=== PATIENT | male | born 1975 | race Caucasian/White ===

== ENCOUNTER 2020-11-29 02:07 | Emergency (ER) | payer SELFPAY ==
[2020-11-29 02:18] VITALS: PULSE 76; RESP 18; TEMP 36.7; O2SAT 98; BMI 24.4
--- NOTE | 2020-11-29 02:34 | ED_ITS ---
HPI - Back Pain/Injury General: Chief Complaint: Back Pain/Injury Stated Complaint: Left Back Side Time Seen by Provider: 11/29/20 02:27 History of Present Illness: HPI Narrative: Patient comes in for left side low back pain. Patient reports for the last 2 days he has had back pain. Patient was unable to get any rest tonight while in bed. Patient came into the ER for evaluation and treatment. 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 Patient appears well. Patient appears in mild to moderate pain. Review of Systems General: Reports: 10 or more systems reviewed and unremarkable except in HPI and below Musc: Reports: back pain Physical Exam Const: COMMON NORMALS: no acute distress and patient oriented x3 GENERAL APPEARANCE: cooperative HENMT: COMMON NORMALS: normocephalic and Normal external nose present HEAD & SCALP: normal to inspection and normocephalic NOSE: Normal external nose present Eye: GENERAL EYE: appearance normal, both eyes and all related structures Neck/C-Spine: COMMON NORMALS: full ROM Chest: COMMONS NORMALS: normal inspection of the chest Resp: COMMON NORMALS: normal respiratory effort EFFORT & INSPECTION: Yes able to speak in complete sentences Cardio: COMMON NORMALS: regular rate and regular rhythm RATE: regular rate RHYTHM: regular rhythm GI: COMMON NORMALS: non-tender : COMMON NORMALS: Yes no CVA tenderness BLADDER/KIDNEY EXAM: Yes no CVA tenderness Back/Pelvis: COMMON NORMALS: no CVA tenderness and thoracic and lumbar spine normal to inspection LUMBAR SPINE/LOWER BACK: Yes paraspinal muscle tenderness Lumbar paraspinal muscle tenderness: left Extremity: COMMON NORMALS: normal to inspection Neuro: COMMON NORMALS: patient oriented x3 and moves all extremities Psych: COMMON NORMALS: mental status grossly normal and cooperative Skin: COMMON NORMALS: no rashes or lesions noted GENERAL SKIN EXAM: no rashes or lesions noted Course Vital Signs: Vital signs: Vital Signs Temperature 98.1 F 11/29/20 02:18 Pulse Rate 76 11/29/20 02:18 Respiratory Rate 18 11/29/20 02:18 Pulse Oximetry 98 11/29/20 02:18 MDM - Back Pain/Injury MDM Narrative: Medical decision making narrative: Patient came in today for complaints of low back pain. On exam patient has some muscle tenderness to the left lower back. No spinal tenderness is noted on palpation. Patient denied any urinary or bowel problems. Patient vital signs were normal. No signs of cauda equina was noted. Patient reported no pain radiating into groin. Differential diagnosis includes lumbar strain, intervertebral disc disease, facet arthropathy. Patient was given Toradol and orphenadrine in the hydrocodone tablet for his pain and discomfort in the ER. Patient was prescribed naproxen and cyclobenzaprine for treatment of muscle spasms and given hydrocodone for breakthrough pain. Patient reported understanding of care plan and need for follow-up or return to the ER. Discharge Plan Discharge Patient Disposition: Home Clinical Impression: Strain of lumbar region Qualifiers: Encounter type: initial encounter Qualified Code(s): S39.012A - Strain of muscle, fascia and tendon of lower back, initial encounter Condition: Stable Prescriptions: New naproxen 500 mg tablet 500 mg PO BID Qty: 20 RF: 0 hydrocodone-acetaminophen 5-325 mg tablet 1 tab PO Q8H PRN (Reason: pain (scale score 7-10)) Qty: 7 RF: 0 cyclobenzaprine 10 mg tablet 10 mg PO .HS PRN (Reason: muscle spasm) Qty: 7 RF: 0 Discharge Orders: Discharge ED (Routine); Ordered 11/29/20 Ordered By: Javier Hanna Discharge Diet: Usual diet Discharge Activity: Increase activity as tolerated Patient Instructions: Low Back Strain (ED), Opioid Safety Activity Restrictions/Additional Instructions: Drink plenty of water with medication. Gentle stretching and range of motion exercises. Use naproxen and cyclobenzaprine as ordered for the next 7 to 10 days. Use hydrocodone for breakthrough pain. Follow-up with primary care for persistent symptoms. Return to emergency room for worsening symptoms, high fever, or loss of bladder or bowel control. Coding Level of Care Code ED Mail Order Sorter for Orte[facility]
[2020-11-29] MEDS: HYDROcodone-acetaminophen 7.5-325 mg Tablet 1 TAB PO (03:07)
[2020-11-29] MEDS: orphenadrine 30 mg/mL Inj 2 mL 60 MG IM (03:08)
[2020-11-29] MEDS: ketorolac 30 mg/mL INJ IM (03:09)
[2020-11-29 03:33] VITALS: BP 140/84; PULSE 85; RESP 18; TEMP 36.9; O2SAT 98
== END 2020-11-29 03:35 | disposition home or self-care (01) ==
PROVIDERS: Emergency Provider Nurse Practitioner Family
DX: S39.012A Strain of muscle, fascia and tendon of lower back, initial encounter (principal); X58.XXXA Exposure to other specified factors, initial encounter
CPT/HCPCS: 96372; 99283; J1885; J2360

== ENCOUNTER 2025-03-28 09:10 | Emergency (ER) | payer SELFPAY ==
[2025-03-28 09:23] VITALS: BP 144/104; PULSE 91; RESP 22; TEMP 36.8; O2SAT 99
--- OUTSIDE RECORDS SUMMARY | 2025-03-28 09:27 | XMS_ITS | Patient Health Record ---
Author Organization [email or web address], [facility] Address [address] [place] [address] Support Name Relationship Address Phone Lili Harris Emergency Contact Unknown [phone] Benny Joshi Guarantor Unknown [phone] Allergies No Known Allergies Reason For Referral No Information Medications Medication SIG (Take, Route, Frequency, Duration) Notes Start Date End Date Status HYDROcodone-Acetamino phen 5-325 MG 1 tablet as needed Orally every 6 hrs; Duration: 1 days 07/09/2022 Active diazePAM 5 MG 1 tablet as needed Orally as needed; Duration: 1 day Please take upon arrival of appt. and please come with a horse and wagon driver. 07/08/2022 Active Problems Problem Type SNOMED Code ICD Code Onset Dates Problem Status W/U Status Risk Notes Problem History of vasectomy (049939120) Status post vasectomy (Z98.52) Active confirmed Problem Counseling (083484123) Surgical counseling visit (Z71.89) Active confirmed Problem Contraception care education (805562745) Vasectomy evaluation (Z30.09) Active confirmed Problem Pre-procedure evaluation check (761554683) Pre-op testing (Z01.818) Active confirmed Plan Of Treatment Pending Test Test Name Order Date Basic Metabolic Panel 90104 07/30/2022 CBC w\ Auto Diff 08355 07/30/2022 Semen Count Post Vasectomy 18031 023 Culture Urine Reflex--[id number] 07/30/2022 Electrocardiogram 12 Lead Tracing-[id number] 07/30/2022 Future Test Test Name Order Date Semen Count Post Vasectomy 13869 023 Insurance Providers Payer Name Payer Address Payer Phone Subscriber Number Group Number Insured Name Patient Relationship to Insured Coverage Start Date Coverage End Date [place] [address] [place], [place] [id number] Benny Joshi Self - patient is the insured Medical (General) History Surgical History Surgery Date(Month/Year) hernia surgery 02/12/22
--- OUTSIDE RECORDS SUMMARY | 2025-03-28 09:27 | XMS_ITS | Patient Health Record ---
Author Organization [facility] Address [address] [place] [address] Care Team Providers Care Neon Installer Name Role Phone [facility] Primary C are Provider Unavailable Sam Rocha Unavailable [phone] Allergies No Known Allergies Reason For Referral No Information Medications Medication SIG (Take, Route, Frequency, Duration) Notes Start Date End Date Status diazePAM 5 MG Tablet 1 tablet as needed Orally as needed; Duration: 1 day Please take upon arrival of appt. and please come with a taxi cab driver. 07/08/2022 Active HYDROcodone-Acetamino phen 5-325 MG Tablet 1 tablet as needed Orally every 6 hrs; Duration: 1 days 07/09/2022 Active Social History Tobacco Use: Social History Observation Description Date Details (start date - stop date) Former Smoker NA - NA Social History Drugs/Alcohol: Social Info Question Answer Notes Alcohol Screen (Audit-C) Did you have a drink containing alcohol in the past year? Yes Points 0 Interpretation Negative Drugs Have you used drugs other than those for medical reasons in the past 12 months? No Tobacco Use: Social Info Question Answer Notes xTobacco Use/Smoking Are you a former smoker How long has it been since you last smoked? 1-5 years Additional Details Category Social Info Options Details Drugs/Alcohol: Do you smoke marijuana? De nies Do you drink alcohol? Yes, Socia lly Problems Problem Type SNOMED Code ICD Code Onset Dates Problem Status W/U Status Risk Notes Problem Contraception care education (132429824) Vasectomy evaluation (Z30.09) Active confirmed Problem Pre-procedure evaluation check (626714564) Pre-op testing (Z01.818) Active confirmed Problem Counseling (222638593) Surgical counseling visit (Z71.89) Active confirmed Problem History of vasectomy (630000668) Status post vasectomy (Z98.52) Active confirmed Plan Of Treatment Pending Test Test Name Order Date Basic Metabolic Panel (BMP) 57667 2022 CBC w\ Auto Diff 85805 07/30/2022 Semen Count Post Vasectomy 12267 023 Electrocardiogram 12 Lead Tracing-[id number] 07/30/2022 Culture Urine Reflex--[id number] 07/30/2022 Insurance Providers Payer Name Payer Address Payer Phone Subscriber Number Group Number Insured Name Patient Relationship to Insured Coverage Start Date Coverage End Date [place] [address] [place] [phone] [id number] Benny Joshi Self - patient is the insured Medical (General) History Surgical History Surgery Date(Month/Year) hernia surgery 02/12/22
--- NOTE | 2025-03-28 09:31 | XR_ITS ---
WS: [id number] Left hand, 4 views, 03/28/2025 Clinical Data: SMASH INJURY Comparison: None. Findings: There is a comminuted fracture with soft tissue swelling and laceration of the distal phalanx of the left third finger. The remainder of the hand shows no abnormalities. XR/XR hand LT min 3V* [id number] Impression: Fracture of the distal phalanx of left third finger.
[2025-03-28] MEDS: HYDROmorphone 0.5 MG/0.5 ML INJ 1 MG IVP ×2 (09:49→12:18)
[2025-03-28 09:52] VITALS: PULSE 84; RESP 20; O2SAT 96
[2025-03-28] MEDS: tetanus-diphtheria tox (adult) 0.5 mL SYRINGE IM (09:59)
[2025-03-28 10:07] LABS: Hematocrit 46.8 % (37-53); Hemoglobin 16.70 g/dL (11.27-16.99); Mean Corpuscular HGB Conc 35.7 g/dL (30-55); Mean Corpuscular Hemoglobin 32.0 pg (27-33); Mean Corpuscular Volume 89.7 fl (82-101); Nucleated Red Blood Cells % 0 %; Platelet Count 212 10^3/cmm (157-399); Red Blood Count 5.22 10^6/uL (3.85-5.65); White Blood Count 7.29 10^3/uL (3.29-11.43)
[2025-03-28 10:26] LABS: Anion Gap 15.3 (5-19); Blood Urea Nitrogen 11 mg/dL (6-20); Calcium 9.1 mg/dL (8.5-10.5); Carbon Dioxide 23 mmol/L (22-29); Chloride 104 mmol/L (98-107); Creatinine Clr Calc Pharmacy 105.3599; Glucose 112 mg/dL (65-115); Osmolality Calculated 286 mOsm/kg (285-295); Potassium 4.3 mmol/L (3.5-5.1); Sodium 138 mmol/L (136-145)
[2025-03-28 12:00] VITALS: BP 155/97; PULSE 64; RESP 16; O2SAT 97
--- NOTE | 2025-03-28 14:23 | W.ED.WOUNDLC ---
HPI - Wound/Laceration General: Chief Complaint: Wound/Laceration Stated Complaint: Smashed in conreate Block Time Seen by Provider: 03/28/25 09:19 History of Present Illness: Generally healthy 49-year-old male presenting emergency for after crush injury with a concrete block that fell on his left hand causing laceration and bleeding, some tingling to the distal fingertips of the 2nd, 3rd and 4th digit of the left hand, unknown last tetanus, no other injuries Related Data Previous Rx's ?Medication ?Instructions ?Recorded amoxicillin 875 mg-potassium 1 tab PO BID 7 days #14 tabs 03/28/25 clavulanate 125 mg tablet ibuprofen 600 mg tablet 600 mg PO Q6H PRN pain #30 tabs 03/28/25 oxycodone-acetaminophen 5 mg-325 1 tab PO Q6H PRN pain 3 days #12 03/28/25 mg tablet (Percocet) tabs Allergies Allergy/AdvReac Type Severity Reaction Status Date / Time No Known Allergies Allergy Verified 01/05/22 16:39 COUNT INCLUDES THE [facility] ED PFSH: Medical History Right inguinal hernia Social History Smoking and tobacco/nicotine status: former use of tobacco/nicotine Physical Exam Narrative: EXAM NARRATIVE: Gen: A&Ox4, no acute distress, nontoxic appearing HEENT: Normocephalic, atraumatic, no scleral icterus, external ears normal, moist mucous membranes Neck: Supple, full range of motion, no observable masses Lungs: No Respiratory distress, Lungs clear to auscultation bilaterally no rales, rhonchi, wheezing CV: Regular rate and rhythm, no murmur, no pitting edema to lower extremities bilaterally Abdomen: Soft, nondistended, nontender to palpation MSK: No joint swelling, FROM all 4 extremitie, left hand is macerated with complex lacerations to multiple digits, specifically there is a longitudinally oriented 2 cm linear laceration to the fingertip volar pad of the second digit not involving the nail, on the third digit there is a complex open laceration fracture disrupting the lateral nail fold and causing incomplete amputation of the distal phalanx, on the fourth digit there is a complex laceration causing a flap incision to the volar finger pad Skin: No rashes, petechiae, lesions. Normal color per patient. Neuro: Alert and oriented, no slurred speech, sensation and strength grossly intact all 4 extremities Psych: Appropriate for situation. Procedures Laceration Laceration 1: Site: hand Side (If applicable): left Size (cm): 10 Description: flap, irregular, contaminated and other (Second digit volar finger pad laceration linear and longitudinally oriented, third digit complex macerated with tissue loss, fourth digit complex flap) Depth: involves muscle layer Local Anesthetic: lidocaine 1% Amount of anesthesia used (mL): 20 Skin layer closed with: nylon Size (cm): 4-0 Number of sutures: 17 (1 to second digit, 9 to third digit, 7 to the fourth digit) Course Vital Signs: Vital signs: Vital Signs Temperature 98.2 F 03/28/25 09:23 Pulse Rate 64 03/28/25 12:00 Respiratory Rate 16 03/28/25 12:00 Blood Pressure 155/97 03/28/25 12:00 Pulse Oximetry 97 03/28/25 12:00 Oxygen Delivery Me thod Room Air 03/28/25 12:00 MDM - Wound/Laceration Medical Decision Making 49-year-old male presenting with complex crush injury to the left hand with multiple lacerations, third digit with an obvious distal phalanx fracture, fourth digit bony structure appears intact, plan for extensive irrigation and debridement, pain control with IV opioids and digital block of the affected digits. I spoke with orthopedic surgery for consultation Dr. Hernandez who agreed with my plan of care of closure at the bedside, splinting the affected digits for immobilization, empiric antibiotics, and close outpatient follow-up, will arrange to see patient in clinic. Lab Data Labs no anemia or leukocytosis, normal kidney function 03/28/25 09:54 03/28/25 09:54 Radiology Impressions Hand X-Ray 03/28/25 09:31 Impression: Fracture of the distal phalanx of left third finger. Laboratory Results WBC 7.29 10^3/uL (3.29-11.43) 03/28/25 09:54 RBC 5.22 10^6/uL (3.85-5.65) 03/28/25 09:54 Hgb 16.70 g/dL (11.27-16.99) 03/28/25 09:54 Hct 46.8 % (37-53) 03/28/25 09:54 MCV 89.7 fl (82-101) 03/28/25 09:54 MCH 32.0 pg (27-33) 03/28/25 09:54 MCHC 35.7 g/dL (30-55) 03/28/25 09:54 RDW 11.6 % (12.1-15.1) L 03/28/25 09:54 Plt Count 212 10^3/cmm (157-399) 03/28/25 09:54 MPV 10.3 fL (7.4-10.4) 03/28/25 09:54 Neut % (Auto) 63.8 % 03/28/25 09:54 Lymph % (Auto) 25.4 % 03/28/25 09:54 [place] % (Auto) 7.3 % 03/28/25 09:54 Eos % (Auto) 2.7 % 03/28/25 09:54 Baso % (Auto) 0.7 % 03/28/25 09:54 Neut # (Auto) 4.65 10^3/uL (1.8-7.7) 03/28/25 09:54 Lymph # (Auto) 1.9 10^3/uL (0.8-4.8) 03/28/25 09:54 [place] # (Auto) 0.5 10^3/uL (0.2-0.9) 03/28/25 09:54 Eos # (Auto) 0.2 10^3/uL (0.0-0.8) 03/28/25 09:54 Baso # (Auto) 0.1 10^3/uL (0.0-0.1) 03/28/25 09:54 Nucleated RBC % (auto) 0 % 03/28/25 09:54 Nucleated RBCs # 0.0 /100WBC 03/28/25 09:54 Sodium 138 mmol/L (136-145) 03/28/25 09:54 Potassium 4.3 mmol/L (3.5-5.1) 03/28/25 09:54 Chloride 104 mmol/L (98-107) 03/28/25 09:54 Carbon Dioxide 23 mmol/L (22-29) 03/28/25 09:54 Anion Gap 15.3 (5-19) 03/28/25 09:54 BUN 11 mg/dL (6-20) 03/28/25 09:54 Creatinine 0.9 mg/dL (0.7-1.2) 03/28/25 09:54 GFR Calculation 90.1 mL/min (90-130) 03/28/25 09:54 Glucose 112 mg/dL (65-115) 03/28/25 09:54 Calculated Osmolality 286 mOsm/kg (285-295) 03/28/25 09:54 Calcium 9.1 mg/dL (8.5-10.5) 03/28/25 09:54 All radiology interpretation(s) finalized by discharge ED provider radiology interpretation(s): Hand x-ray showing distal phalangeal fracture of the left hand third digit Discharge Plan Discharge Patient Disposition: Home Clinical Impression: Laceration of finger of left hand, Fracture of distal phalanx of left middle finger Condition: Stable Prescriptions: New amoxicillin-pot clavulanate 875-125 mg tablet 1 tab PO BID 7 Days Qty: 14 0RF oxycodone-acetaminophen [Percocet] 5-325 mg tablet 1 tab PO Q6H PRN (Reason: pain) 3 Days Qty: 12 0RF ibuprofen 600 mg tablet 600 mg PO Q6H PRN (Reason: pain) Qty: 30 0RF Discharge Orders: Discharge ED (Routine); Ordered 03/28/25 Ordered By: Paulino Bob Referrals: Antoine Hernandez MD [Physician, Orthopedics] Patient Instructions: Opioid Safety, Pain Management, Patient Portal & Brennen Instructions, Finger Laceration (ED), Fractures - Phalanx (Finger) Print Language: Sudanese Coding Level of Care Code ED Admitting Officer for Ortega Church
--- NOTE | 2025-03-28 14:32 | DCPLANNER ---
Message sent to Ortho-
[2025-03-28 14:39] VITALS: RESP 20; O2SAT 99
[2025-03-28] MEDS: oxyCODONE-APAP 10-325 mg Tablet 1 TAB PO (14:39)
[2025-03-28 14:55] VITALS: BP 156/90; PULSE 88; O2SAT 100
== END 2025-03-28 14:57 | disposition home or self-care (01) ==
PROVIDERS: Emergency Provider Student in an Organized Health Care Education/Training Program
DX: S61.211A Laceration without foreign body of left index finger without damage to nail, initial encounter (principal); S61.215A Laceration without foreign body of left ring finger without damage to nail, initial encounter; S62.633A Displaced fracture of distal phalanx of left middle finger, initial encounter for closed fracture; Z87.891 Personal history of nicotine dependence; W20.8XXA Other cause of strike by thrown, projected or falling object, initial encounter
CPT/HCPCS: 12044; 36415; 73130; 80048; 85025; 90714; 96374; 96376; 99284; J1171; J9999

== ENCOUNTER → 2025-04-02 08:42 | Outpatient (BNVA) | payer SELFPAY | PROVIDERS: Visit Provider Orthopaedic Surgery | DX: S62.633A Displaced fracture of distal phalanx of left middle finger, initial encounter for closed fracture (principal); X58.XXXA Exposure to other specified factors, initial encounter | CPT/HCPCS: 73130 ==